=== PATIENT | male | born 1990 | race Caucasian/White ===

== ENCOUNTER 2017-10-31 16:24 | Emergency (ER) | payer MEDICAID ==
[~2017-10-31] VITALS: Ht 175.3 cm; Wt 68.0 kg
[2017-10-31] MEDS ORDERED: LORAZEPAM 1 MG TABLET PO ONE (17:30)
[2017-10-31] MEDS ORDERED: LORAZEPAM 1 MG TABLET ONE (17:33)
--- NOTE | 2017-10-31 17:37 | NUR ---
BIB [facility], C/O FEELING ANXIOUS AND DEPRESSED . PT AOX3 RR EVEN AND UNLABORED. NO SOB NOTED. NAD NOTED. NO NVD AT THIS TIME. PT PLACED ON MONITOR. APPEARS COMFORTABLE. PT SEEN BY DR. SALAZAR. PT MEDICATED ORDERED.
[2017-10-31 17:38] LABS: CALCIUM, SERUM 10.1 mg/dL (8.5-10.1); CARBON DIOXIDE 21 mmol/L (21-32); CHLORIDE 93 mmol/L (98-107); CREATININE 0.9 mg/dL (0.6-1.3); GLUCOSE 82 mg/dL (74-106); POTASSIUM 3.9 mmol/L (3.5-5.1); SODIUM SERUM 130 mmol/L (136-145); UREA NITROGEN, BLOOD 16 mg/dL (7-18)
[2017-10-31 17:39] LABS: ALCOHOL, BLOOD < 3 mg/dL (0-0)
[2017-10-31 17:53] LABS: BASOPHILS # (AUTO) 0.1 /CMM (0.0-0.2); BASOPHILS % (AUTO) 0.5 % (0.0-2.0); EOSINOPHILS % (AUTO) 4.3 % (0.0-6.0); HEMATOCRIT 43 % (39-51); HEMOGLOBIN 14.5 g/dL (13.5-17.5); LYMPHOCYTES # (AUTO) 1.8 /CMM (0.8-4.8); LYMPHOCYTES % (AUTO) 14.6 % (20.0-44.0); MEAN CORPUSCULAR HGB CONC 34 g/dl (31.0-36.0); MEAN CORPUSCULAR VOLUME 79 fL (80-96); MONOCYTES # (AUTO) 1.2 /CMM (0.1-1.30); MONOCYTES % (AUTO) 9.6 % (2.0-12.0); NEUTROPHILS # (AUTO) 8.9 /CMM (1.8-8.9); PLATELET COUNT (AUTO) 505 /CMM (150-450); RDW COEFFICIENT OF VARIATION 12.3 (11.5-15.0); RED BLOOD CELL COUNT(AUTO) 5.41 MIL/uL (4.5-6.0); WHITE BLOOD COUNT (AUTO) 12.5 K/uL (4.3-11.0)
--- NOTE | 2017-10-31 18:17 | NUR ---
CALLED [facility] FOR PSYCH EVAL, ETA 1 HOUR
--- NOTE | 2017-10-31 18:21 | NUR ---
URINE COLLECTED. 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
--- NOTE | 2017-10-31 18:49 | NUR ---
PT PROVIDED WITH FOOD AND WATER
[2017-10-31] MEDS ORDERED: IV NS 0.9% 1,000 ML BAG IV ONE (19:00)
--- NOTE | 2017-10-31 19:20 | NUR ---
[facility] AT BEDSIDE FOR EVAL
--- NOTE | 2017-10-31 21:20 | NUR ---
CALLED [facility] FOR TRANSPORT TO [facility], ETA 90-120 MIN, TRIP#[id number]
--- NOTE | 2017-10-31 21:27 | NUR ---
CALLED [facility] [phone] FOR REPORT, VM LEFT. WAITING FOR CALL BACK
--- NOTE | 2017-10-31 21:57 | NUR ---
REPORT GIVEN TO [facility]/ PSYCH [facility]
--- NOTE | 2017-10-31 22:24 | NUR ---
REPORT GIVEN TO [facility] FOR [facility]. PT AWARE OF TRANSFER WITH ALL PERSONAL BELONGIGNS. IV REMOVED CATHETER INTACT AND BENIGN. GAUZE AND PRESSURE APPLIED. VSS. PT TRANSFERRED VIA GURNEY. PER [facility] TOOK OVER CARE
[2017-10-31 22:28] VITALS: BP 112/87
== END 2017-10-31 22:29 | disposition home or self-care (01) ==
LOC: ER 16:27
DX: E87.1 Hypo-osmolality and hyponatremia (principal); F41.9 Anxiety disorder, unspecified; R45.851 Suicidal ideations; Z60.2 Problems related to living alone
CPT/HCPCS: 36415; 80048-TC; 80305; 85025-TC; A4606; G0480; J7030; Z7610